=== PATIENT | female | born 1990 | race Hispanic/Latino ===

== ENCOUNTER 2018-02-09 14:26 | Emergency (ER) | payer MEDICAID ==
[2018-02-09 14:31] VITALS: BP 116/77; PULSE 80; RESP 18; TEMP 98.1; O2SAT 98
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
== END 2018-02-09 15:28 | disposition home or self-care (01) ==
LOC: H.ER 14:26
DX: S62.002A Unspecified fracture of navicular [scaphoid] bone of left wrist, initial encounter for closed fracture (principal); V00.142A Scooter (nonmotorized) colliding with stationary object, initial encounter; Y92.89 Other specified places as the place of occurrence of the external cause; Z88.0 Allergy status to penicillin